=== PATIENT | male | born 1945 | race Caucasian/White ===

== ENCOUNTER 2023-04-27 09:20 | Outpatient (RCR) | payer MEDICARE, BC, SELFPAY ==
[2023-04-13] VITALS (9 sets, daily range): BP systolic 103–117; BP diastolic 53–67; BMI 36.3
[2023-04-13 09:55] LABS: % Basophils 0.2 % (0-2); % Eosinophils 0.7 % (0-6); % Immature Granulocytes 2.5 % (0-0.5); % Lymphocytes 10.5 % (20.5-51.1); % Neutrophils 75.1 % (42.2-75.2); Absolute Eosinophils 0.1 10^3/uL (0-0.7); Absolute Immature Granulocytes 0.3 10^3/uL (0-0.05); Absolute Lymphocytes 1.1 10^3/uL (1.2-3.4); Absolute Monocytes 1.1 10^3/uL (0.1-0.6); Absolute Neutrophils 7.7 10^3/uL (1.4-6.5); Hematocrit 37.7 % (39.0-52.0); Hemoglobin 12.9 g/dL (13.0-18.0); Mean Corp Hgb Conc. 34.2 g/dL (33.0-37.0); Mean Corpuscular Hgb 29.5 pg (27.0-31.0); Mean Corpuscular Volume 86.3 fL (80.0-94.0); Mean Platelet Volume 9.6 fL (7.4-10.4); Platelet Count 258 10^3/uL (130-400); Red Blood Cell Count 4.37 10^6/uL (4.70-6.10); Red Cell Dist. Width 15.3 % (11.5-14.5); White Blood Cell Count 10.3 10^3/uL (4.8-10.8)
[2023-04-13] MEDS: NSS 250 IV (09:59)
[2023-04-13] MEDS: GAMMAGARD 200 IV (10:00)
[2023-04-13 10:53] LABS: Blood Urea Nitrogen 21 mg/dl (9-20); Carbon Dioxide 26 mmol/L (22-30); Chloride 105 mmol/L (98-107); Estimated Creatinine Clearance 59 ml/min; Glucose 81 mg/dl (70-99); Potassium 3.6 mmol/L (3.5-5.1); Sodium 139 mmol/L (135-145); eGFR > 60.00
[2023-04-13] MEDS: GAMMAGARD 300 IV (11:56)
[2023-04-15 00:04] LABS: IgG 1103 mg/dl (700-1600); IgM 40 mg/dl (40-230)
[2023-04-17 12:29] LABS: IgA 63 mg/dL (68-408)
[2023-04-27] VITALS (9 sets, daily range): BP systolic 99–128; BP diastolic 48–70
[2023-04-27] MEDS: GAMMAGARD 300 IV (09:54)
[2023-04-27] MEDS: NSS 250 IV (09:54)
[2023-04-27] MEDS: GAMMAGARD 200 IV (12:17)
== END 2023-04-28 08:15 | disposition home or self-care (01) ==
LOC: OID 09:20
PROVIDERS: ATTENDING PHYSICIAN Allergy & Immunology; FAMILY PHYSICIAN Internal Medicine; OTHER PHYSICIAN Internal Medicine Pulmonary Disease
DX: D83.1 Common variable immunodeficiency with predominant immunoregulatory T-cell disorders (principal); J45.40 Moderate persistent asthma, uncomplicated; J45.50 Severe persistent asthma, uncomplicated; R06.02 Shortness of breath
CPT/HCPCS: 36415; 80048; 82784; 85025; 96361; 96365; 96366; J1569

== ENCOUNTER 2023-06-01 08:58 | Outpatient (RCR) | payer MEDICARE, BC, SELFPAY ==
[2023-05-11] VITALS (9 sets, daily range): BP systolic 92–120; BP diastolic 48–64; BMI 35.0
[2023-05-11] MEDS: NSS 250 IV (09:52)
[2023-05-11] MEDS: GAMMAGARD 200 IV (09:52)
[2023-05-11] MEDS: GAMMAGARD 300 IV (11:50)
[2023-06-01] VITALS (10 sets, daily range): BP systolic 102–121; BP diastolic 50–65; BMI 35.4
[2023-06-01] MEDS: GAMMAGARD 200 IV (09:41)
[2023-06-01] MEDS: NSS 250 IV (09:41)
[2023-06-01] MEDS: GAMMAGARD 300 IV (11:30)
== END 2023-06-02 10:10 | disposition home or self-care (01) ==
LOC: OID 08:58
PROVIDERS: ATTENDING PHYSICIAN Allergy & Immunology; FAMILY PHYSICIAN Internal Medicine; OTHER PHYSICIAN Internal Medicine Pulmonary Disease
DX: D83.1 Common variable immunodeficiency with predominant immunoregulatory T-cell disorders (principal); J45.50 Severe persistent asthma, uncomplicated; R06.02 Shortness of breath; J45.40 Moderate persistent asthma, uncomplicated
CPT/HCPCS: 96361; 96365; 96366; J1569

== ENCOUNTER 2023-07-02 10:14 | Outpatient (RCR) | payer MEDICARE, BC, SELFPAY ==
[2023-06-18] VITALS (10 sets, daily range): BP systolic 95–117; BP diastolic 48–75
[2023-06-18] MEDS: ZYRTEC 10 MG PO (10:33)
[2023-06-18] MEDS: GAMMAGARD 300 IV (10:33)
[2023-06-18] MEDS: NSS 250 IV (10:34)
[2023-06-18] MEDS: GAMMAGARD 200 IV (13:04)
[2023-07-02] VITALS (10 sets, daily range): BP systolic 95–121; BP diastolic 46–64
[2023-07-02] MEDS: GAMMAGARD 300 IV (10:45)
[2023-07-02] MEDS: NSS 250 IV (10:46)
[2023-07-02 10:53] LABS: % Basophils 0.6 % (0-2); % Eosinophils 1.4 % (0-6); % Lymphocytes 13.2 % (20.5-51.1); % Monocytes 10.1 % (1.7-9.3); % Neutrophils 73.7 % (42.2-75.2); Absolute Basophils 0.1 10^3/uL (0-0.2); Absolute Eosinophils 0.1 10^3/uL (0-0.7); Absolute Immature Granulocytes 0.1 10^3/uL (0-0.05); Absolute Monocytes 0.8 10^3/uL (0.1-0.6); Absolute Neutrophils 5.7 10^3/uL (1.4-6.5); Hematocrit 37.3 % (39.0-52.0); Hemoglobin 12.8 g/dL (13.0-18.0); Mean Corp Hgb Conc. 34.3 g/dL (33.0-37.0); Mean Corpuscular Hgb 29.7 pg (27.0-31.0); Mean Corpuscular Volume 86.5 fL (80.0-94.0); Mean Platelet Volume 11.3 fL (7.4-10.4); Nucleated Red Blood Cells % 0 % (-); Platelet Count 248 10^3/uL (130-400); Red Blood Cell Count 4.31 10^6/uL (4.70-6.10); Red Cell Dist. Width 13.8 % (11.5-14.5); White Blood Cell Count 7.8 10^3/uL (4.8-10.8)
[2023-07-02 11:04] LABS: Blood Urea Nitrogen 24 mg/dl (9-20); Calcium 9.4 mg/dl (8.4-10.2); Carbon Dioxide 25 mmol/L (22-30); Chloride 107 mmol/L (98-107); Glucose 109 mg/dl (70-99); Potassium 4.1 mmol/L (3.5-5.1); Sodium 140 mmol/L (135-145); eGFR > 60.00
[2023-07-02] MEDS: GAMMAGARD 200 IV (13:04)
[2023-07-05 05:23] LABS: IgG 1219 mg/dl (700-1600); IgM 31 mg/dl (40-230)
[2023-07-05 06:18] LABS: IgA < 50 mg/dl (70-400)
== END 2023-07-05 09:01 | disposition home or self-care (01) ==
LOC: OID 10:14
PROVIDERS: ATTENDING PHYSICIAN Allergy & Immunology; FAMILY PHYSICIAN Internal Medicine; OTHER PHYSICIAN Internal Medicine Pulmonary Disease
DX: D83.1 Common variable immunodeficiency with predominant immunoregulatory T-cell disorders (principal); J45.40 Moderate persistent asthma, uncomplicated; J45.50 Severe persistent asthma, uncomplicated; R06.02 Shortness of breath
CPT/HCPCS: 36415; 80048; 82784; 85025; 96365; 96366; J1569

== ENCOUNTER 2023-07-30 09:18 | Outpatient (RCR) | payer MEDICARE, BC, SELFPAY ==
[2023-07-16] VITALS (10 sets, daily range): BP systolic 95–110; BP diastolic 42–62
[2023-07-16] MEDS: NSS 250 IV (10:13)
[2023-07-16] MEDS: GAMMAGARD 200 IV (10:14)
[2023-07-16] MEDS: GAMMAGARD 300 IV (12:07)
[2023-07-30] VITALS (11 sets, daily range): BP systolic 91–121; BP diastolic 41–58
[2023-07-30] MEDS: GAMMAGARD 200 IV (09:39)
[2023-07-30] MEDS: NSS 250 IV (09:40)
[2023-07-30] MEDS: GAMMAGARD 300 IV (11:31)
== END 2023-08-03 09:37 | disposition home or self-care (01) ==
LOC: OID 09:18
PROVIDERS: ATTENDING PHYSICIAN Allergy & Immunology; FAMILY PHYSICIAN Internal Medicine; OTHER PHYSICIAN Internal Medicine Pulmonary Disease
DX: D83.1 Common variable immunodeficiency with predominant immunoregulatory T-cell disorders (principal); J45.40 Moderate persistent asthma, uncomplicated; J45.50 Severe persistent asthma, uncomplicated; R06.02 Shortness of breath
CPT/HCPCS: 96365; 96366; J1569

== ENCOUNTER 2023-09-03 11:13 | Outpatient (RCR) | payer MEDICARE, BC, SELFPAY ==
[2023-08-18] VITALS (10 sets, daily range): BP systolic 90–136; BP diastolic 50–63
[2023-08-18] MEDS: NSS 250 IV (10:32)
[2023-08-18] MEDS: GAMMAGARD 300 IV (10:32)
[2023-08-18] MEDS: GAMMAGARD 200 IV (13:00)
[2023-09-03] VITALS (10 sets, daily range): BP systolic 87–119; BP diastolic 46–73
[2023-09-03] MEDS: GAMMAGARD 300 IV (11:35)
[2023-09-03] MEDS: NSS 250 IV (11:35)
[2023-09-03] MEDS: GAMMAGARD 200 IV (14:08)
== END 2023-09-05 23:59 | disposition home or self-care (01) ==
LOC: OID 11:13
PROVIDERS: ATTENDING PHYSICIAN Allergy & Immunology; FAMILY PHYSICIAN Internal Medicine; OTHER PHYSICIAN Internal Medicine Pulmonary Disease
DX: D83.1 Common variable immunodeficiency with predominant immunoregulatory T-cell disorders (principal); J45.40 Moderate persistent asthma, uncomplicated; R06.02 Shortness of breath; J45.50 Severe persistent asthma, uncomplicated
CPT/HCPCS: 96365; 96366; J1569

== ENCOUNTER 2023-09-28 09:34 | Outpatient (RCR) | payer MEDICARE, BC, SELFPAY ==
[2023-09-28] VITALS (10 sets, daily range): BP systolic 99–141; BP diastolic 43–72; BMI 34.2
[2023-09-28] MEDS: NSS 250 IV (10:30)
[2023-09-28] MEDS: TYLENOL 1000 MG PO (10:31)
[2023-09-28 10:32] LABS: % Basophils 0.1 % (0-2); % Eosinophils 0.5 % (0-6); % Immature Granulocytes 0.7 % (0-0.5); % Lymphocytes 9.4 % (20.5-51.1); % Monocytes 7.1 % (1.7-9.3); % Neutrophils 82.2 % (42.2-75.2); Absolute Immature Granulocytes 0.1 10^3/uL (0-0.05); Absolute Lymphocytes 0.8 10^3/uL (1.2-3.4); Absolute Monocytes 0.6 10^3/uL (0.1-0.6); Absolute Neutrophils 6.9 10^3/uL (1.4-6.5); Hematocrit 40.4 % (39.0-52.0); Hemoglobin 13.3 g/dL (13.0-18.0); Mean Corp Hgb Conc. 32.9 g/dL (33.0-37.0); Mean Corpuscular Hgb 28.1 pg (27.0-31.0); Mean Corpuscular Volume 85.4 fL (80.0-94.0); Mean Platelet Volume 10.4 fL (7.4-10.4); Platelet Count 247 10^3/uL (130-400); Red Blood Cell Count 4.73 10^6/uL (4.70-6.10); Red Cell Dist. Width 14.9 % (11.5-14.5); White Blood Cell Count 8.3 10^3/uL (4.8-10.8)
[2023-09-28] MEDS: GAMMAGARD 200 IV (10:33)
[2023-09-28 12:13] LABS: Blood Urea Nitrogen 20 mg/dl (9-20); Calcium 9.3 mg/dl (8.4-10.2); Carbon Dioxide 21 mmol/L (22-30); Chloride 108 mmol/L (98-107); Estimated Creatinine Clearance 68 ml/min; Glucose 145 mg/dl (70-99); Potassium 4.1 mmol/L (3.5-5.1); Sodium 141 mmol/L (135-145); eGFR > 60.00
[2023-09-28] MEDS: GAMMAGARD 300 IV (12:33)
[2023-09-30 00:18] LABS: IgG 877 mg/dl (700-1600); IgM 38 mg/dl (40-230)
== END 2023-09-29 09:03 | disposition home or self-care (01) ==
LOC: OID 09:34
PROVIDERS: ATTENDING PHYSICIAN Allergy & Immunology; FAMILY PHYSICIAN Internal Medicine; OTHER PHYSICIAN Internal Medicine Pulmonary Disease
DX: D83.1 Common variable immunodeficiency with predominant immunoregulatory T-cell disorders (principal); J45.40 Moderate persistent asthma, uncomplicated; J45.50 Severe persistent asthma, uncomplicated; R06.02 Shortness of breath
CPT/HCPCS: 36415; 80048; 82784; 85025; 96361; 96365; 96366; J1569

== ENCOUNTER 2023-11-05 08:18 | Outpatient (RCR) | payer MEDICARE, BC, SELFPAY ==
[2023-10-22] VITALS (11 sets, daily range): BP systolic 114–141; BP diastolic 60–86
[2023-10-22] MEDS: NSS 250 IV (08:35)
[2023-10-22] MEDS: GAMMAGARD 200 IV (08:35)
[2023-10-22] MEDS: GAMMAGARD 300 IV (10:27)
[2023-10-22] MEDS: GAMMAGARD 50 IV (12:30)
[2023-11-05] VITALS (10 sets, daily range): BP systolic 135–166; BP diastolic 30–92
[2023-11-05] MEDS: GAMMAGARD 50 IV (08:48)
[2023-11-05] MEDS: NSS 250 IV (08:49)
[2023-11-05] MEDS: GAMMAGARD 200 IV (09:41)
[2023-11-05] MEDS: GAMMAGARD 300 IV (11:03)
== END 2023-11-06 23:59 | disposition home or self-care (01) ==
LOC: OID 08:18
PROVIDERS: ATTENDING PHYSICIAN Allergy & Immunology; FAMILY PHYSICIAN Internal Medicine; OTHER PHYSICIAN Internal Medicine Pulmonary Disease
DX: D83.1 Common variable immunodeficiency with predominant immunoregulatory T-cell disorders (principal); J45.40 Moderate persistent asthma, uncomplicated; J45.50 Severe persistent asthma, uncomplicated; R06.02 Shortness of breath
CPT/HCPCS: 96365; 96366; J1569